=== PATIENT | female | born 1950 ===

== ENCOUNTER 2017-07-04 08:38 | Outpatient (CLI) | payer OTHER ==
[~2017-07-04] VITALS: Ht 152.4 cm; Wt 87.1 kg
== END 2017-07-04 09:00 | disposition home or self-care (01) ==
LOC: OFIC 805 08:38
DX: H81.03 Meniere's disease, bilateral (principal); K21.9 Gastro-esophageal reflux disease without esophagitis; R13.19 Other dysphagia